=== PATIENT | female | born 1955 | race Caucasian/White ===

== ENCOUNTER → 2016-10-05 | Outpatient (CLI) | payer OTHER ==
[~2016-10-05] MED LIST: ADV250INH INH; ALBU17IN INH; ATOR1TAB19 PO; ATOR40TA PO; AUGM875T27 PO; BACITAB3 PO; BACT800T5 PO; BISO10TA6 PO; BISO5TAB5 PO; CINN500T PO; CLEO150C PO; CLOTR1CR TOP; EPI PEN; EPIP0.3I2 INJ; FISH100049 PO; FISHCAP PO; LEVA500T PO; LISI-542 PO; LISI10TA4 PO; MACR100C3 PO; MELA10CA PO; MELA3TAB PO; MELATONIN PO; METF500T PO; NAPR500T2 PO; NEXI40CA PO; NEXIUM PO; PENI250T57 PO; PENI50TA PO; POTATAB PO; SING10TA32 PO; SPIR25TA2 PO; SPIRPOW PO; TORS5TAB2 PO; VITA500T88 PO; ZEST1TAB5 PO; ZYRT1TAB PO; [UNRECOGNIZED DRUG - CODE] PO; [UNRECOGNIZED DRUG - OTHER] PO
--- NOTE | 2016-10-05 12:51 | REPMRS ---
Patient History The patient states she has not had a clinical breast exam in over a year. Patient is postmenopausal. No known family history of cancer. Digital Mammo Screening Bilat: October 05, 2016 - Exam #: [id number] Bilateral CC and MLO view(s) were taken. Technologist: Maia Hendricks, Technologist FINDINGS: There are scattered fibroglandular densities. There has been no change in the appearance of the mammogram from the prior studies. There is a mild amount of residual fibroglandular tissue which is fairly symmetric. There is no interval development of dominant mass, architectural distortion, or clustered microcalcification suggestive of malignancy. ASSESSMENT: BI-RADS/ACR category 1 mammogram. Negative. Recommendation Routine screening mammogram in 1 year (for women over age 40). This mammogram was interpreted with the aid of an FDA-approved computer-aided dectection system. Electronically Signed By: Aleksandr Urbano MD 10/05/16 1155
== END ==
LOC: M RAD 10:30
PROVIDERS: ATTEND Nurse Practitioner Family
DX: Z12.31 Encounter for screening mammogram for malignant neoplasm of breast (principal); Z78.0 Asymptomatic menopausal state

== ENCOUNTER → 2016-10-15 | Outpatient (CLI) | payer OTHER ==
[~2016-10-15] MED LIST changes: +CETI10TA PO; +E-Z-GAS II EFFERVESCENT PACKET (SODIUM BICARB./CITRIC ACID/SIMETHICONE) As Ordered ONE; +E-Z-HD 98% w/w 340GM SUSP BTL As Ordered ONE; +E-Z-PAQUE 96% w/w SUSP 176GM BTL As Ordered ONE; +FLUT1SPR2; +LIPI10TA PO; +MAGN500C PO; +OMEP20CA3 PO; +POTA99TA PO; +SITA50TAB PO; +VITA100037 PO
--- NOTE | 2016-10-15 14:54 | REP ---
ESOPHAGRAM AIR CONTRAST: The procedure was performed under the direct supervision of Dr. Urbano. The images were reviewed with Dr. Urbano. A single view PA chest x-ray is submitted as a manager audit film. There is no change compared to a previous chest x-ray performed on 08/19/2015. Liquid barium and gas producing granules were given in the erect position as well as liquid barium in the prone oblique positions in order to perform a double contrast esophagram examination. The oral and pharyngeal stages of deglutition are unremarkable. Esophageal transport demonstrates tertiary waves. There is no esophagitis, stricture, or mucosal ring. There is a small sliding type hiatal hernia present. Gastroesophageal reflux is not demonstrated on this examination. IMPRESSION: 1. Esophageal dysmotility. 2. There is a small sliding type hiatal hernia present. 1 minute and 17 seconds of fluoroscopic time was utilized for this procedure. Reviewed by ELADIA Hall 10/15/2016 05:05 PEdited and Signed by Aleksandr Urbano MD 10/15/2016 05:18 P
== END ==
LOC: M RAD 09:12
PROVIDERS: ATTEND Physician Assistant Medical
DX: K44.9 Diaphragmatic hernia without obstruction or gangrene (principal)

== ENCOUNTER → 2016-10-22 | Outpatient (CLI) | payer OTHER ==
[~2016-10-22] VITALS: Ht 160 cm; Wt 110.7 kg
[~2016-10-22] MED LIST changes: -E-Z-GAS II EFFERVESCENT PACKET (SODIUM BICARB./CITRIC ACID/SIMETHICONE) As Ordered ONE; -E-Z-HD 98% w/w 340GM SUSP BTL As Ordered ONE; -E-Z-PAQUE 96% w/w SUSP 176GM BTL As Ordered ONE; +LIDOCAINE 2% INJ 100 MG/5 ML SDV (FOR ANES.) As Ordered ONE; +NS 1,000 ML IV ONE; +PROPOFOL 200 MG/20 ML VIAL As Ordered ONE
[2016-10-22 12:26] VITALS: BP 125/58
== END | disposition home or self-care (01) ==
LOC: M OPP 09:05
PROVIDERS: ATTEND Internal Medicine Gastroenterology
DX: Z12.11 Encounter for screening for malignant neoplasm of colon (principal); K57.30 Diverticulosis of large intestine without perforation or abscess without bleeding; K64.8 Other hemorrhoids; Z86.010 Personal history of colon polyps; R93.3 Abnormal findings on diagnostic imaging of other parts of digestive tract; R13.10 Dysphagia, unspecified; K44.9 Diaphragmatic hernia without obstruction or gangrene; K22.4 Dyskinesia of esophagus; R12 Heartburn; I10 Essential (primary) hypertension; E78.5 Hyperlipidemia, unspecified; E11.9 Type 2 diabetes mellitus without complications; K57.92 Diverticulitis of intestine, part unspecified, without perforation or abscess without bleeding; M19.90 Unspecified osteoarthritis, unspecified site; G47.00 Insomnia, unspecified; J45.909 Unspecified asthma, uncomplicated; G47.30 Sleep apnea, unspecified; R06.83 Snoring; Z95.810 Presence of automatic (implantable) cardiac defibrillator; Z87.891 Personal history of nicotine dependence; Z88.8 Allergy status to other drugs, medicaments and biological substances; Z91.011 Allergy to milk products; Z91.030 Bee allergy status; Z79.899 Other long term (current) drug therapy; Z80.1 Family history of malignant neoplasm of trachea, bronchus and lung
CPT/HCPCS: 43249; G0105

== ENCOUNTER → 2017-05-29 | Outpatient (CLI) | payer OTHER ==
[2017-05-29 15:29] LABS: BACTERIA, URINE LARGE AMOUNT; HYALINE CAST, URINE NONE SEEN /lpf (0-1); RBC, URINE 0-1 /hpf (0-3); RENAL EPITHELIAL CELLS, URINE SMALL AMOUNT /hpf; SQUAMOUS EPITHELIAL CELL URINE SMALL AMOUNT /hpf (SMALL AMT)
[2017-05-29 15:30] LABS: MICROSCOPIC EXAM PERFORMED
== END ==
LOC: M SMT 10:25
DX: N39.0 Urinary tract infection, site not specified (principal)
CPT/HCPCS: 36415

== ENCOUNTER 2020-09-02 13:58 | Emergency (ER) | payer MEDICARE, OTHER ==
[~2020-09-02] VITALS: Ht 160 cm; Wt 104.1 kg
[~2020-09-02 13:58] MED LIST changes: -ATOR40TA PO; +ATOR40TA75 PO; -AUGM875T27 PO; +AUGM875T28 PO; +BACITAB PO; -BACITAB3 PO; +BISO10TA14 PO; -BISO10TA6 PO; +BISO5TAB14 PO; -BISO5TAB5 PO; +CLOT1CRE27 TOP; -CLOTR1CR TOP; +GARL400T8 PO; +LEVA1TAB2 PO; -LEVA500T PO; -LIDOCAINE 2% INJ 100 MG/5 ML SDV (FOR ANES.) As Ordered ONE; -LISI-542 PO; +LISI-898 PO; +LISI10TA22 PO; -LISI10TA4 PO; -MACR100C3 PO; +MACR100C43 PO; -MELA3TAB PO; +MELA3TAB70 PO; -METF500T PO; +METF500T13 PO; +NAPR-885 PO; -NAPR500T2 PO; -NS 1,000 ML IV ONE; +OMEP1CAP73 PO; -OMEP20CA3 PO; +PENI500T PO; -PENI50TA PO; -PROPOFOL 200 MG/20 ML VIAL As Ordered ONE; +SPIR-10 PO; -SPIR25TA2 PO; -VITA100037 PO; +VITA100067 PO; -[UNRECOGNIZED DRUG - CODE] PO
--- NOTE | 2020-09-02 14:35 | REP ---
INDICATION: CHEST PAIN. COMPARISON: 08/19/2015 TECHNIQUE: Portable FINDINGS: The technique utilized in obtaining the radiograph has magnified the cardiac silhouette and accentuated the interstitial markings. The superior mediastinal structures are midline. There is cardiomegaly accentuated by technique. 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 The diaphragmatic surfaces of the lungs are regular, and the costophrenic angles are clear. The pulmonary benton are clear. The imaged osseous structures are intact. IMPRESSION: There is no acute cardiopulmonary disease. <Electronically signed by Ulices Stern > 09/02/20 [id number]
[2020-09-02 14:50] LABS: BASO % 0.4 % (0.0-1.0); EOS # 0.2 10^3/uL (0.0-0.5); EOS % 2.2 % (0.0-3.0); HEMATOCRIT 39.5 % (36.0-47.0); HEMOGLOBIN 12.8 g/dl (12.0-15.5); LYMPH # 1.8 10^3/uL (1.5-5.0); LYMPH % 20.6 % (24.0-44.0); MEAN CORPUSCULAR HEMOGLOBIN 28.8 pg (27.0-33.0); MEAN CORPUSCULAR HGB CONC 32.4 g/dl (32.0-36.5); MONO # 0.7 10^3/uL (0.0-0.8); MONO % 7.8 % (2.0-8.0); NEUTROPHILS # 6.1 10^3/uL (1.5-8.5); NEUTROPHILS % 68.3 % (36.0-66.0); PLATELET COUNT, AUTOMATED 175 10^3/uL (150-450); RED BLOOD COUNT 4.44 10^6/uL (4.00-5.40); WHITE BLOOD COUNT 8.9 10^3/uL (4.0-10.0)
[2020-09-02 15:23] LABS: ALBUMIN 4.1 GM/DL (3.2-5.2); ALT/SGPT 43 U/L (12-78); BILIRUBIN,DIRECT 0.2 MG/DL (0.0-0.2); BILIRUBIN,TOTAL 0.5 MG/DL (0.2-1.0); BLOOD UREA NITROGEN 10 MG/DL (7-18); CALCIUM LEVEL 9.3 MG/DL (8.8-10.2); CARBON DIOXIDE LEVEL 26 MEQ/L (21-32); CHLORIDE LEVEL 105 MEQ/L (98-107); CK-MB VALUE MASS 1.2 NG/ML (<3.6); CPK CREATINE PHOSPHOKINASE 84 U/L (26-192); CREATININE FOR GFR 0.67 MG/DL (0.55-1.30); GLOMERULAR FILTRATION RATE > 60.0 (>45); GLUCOSE, FASTING 187 MG/DL (70-100); MB/CK RELATIVE INDEX 1.43 (< OR =4); POTASSIUM SERUM 3.7 MEQ/L (3.5-5.1); SODIUM LEVEL 140 MEQ/L (136-145); TOTAL PROTEIN 7.6 GM/DL (6.4-8.2); TROPONIN I < 0.02 NG/ML (< 0.10)
[2020-09-02 15:25] LABS: INR 1.14; PROTHROMBIN TIME 14.9 SECONDS (12.5-14.3)
[2020-09-02] MEDS ORDERED: FUROSEMIDE 40MG/4ML VIAL (J1940) IV ONE (15:25)
[2020-09-02 15:26] LABS: PARTIAL THROMBOPLASTIN TIME 29.4 SECONDS (24.2-38.5)
--- NOTE | 2020-09-02 15:38 | ECGEPIP ---
[facility] - ED Test Date: 2020-09-02 Pat Name: TRISTA CHAVARRIA Department: Room: - Gender: Female [employer]: LR : 1955 Requested By: WILLIE Tejeda Order Number: [id number] Reading MD: Vero Carcamo Measurements Intervals [place] Rate: 97 P: 43 LA: QRS: 40 QRSD: 118 T: 48 QT: 396 QTc: 502 Interpretive Statements Ventricular-paced rhythm increased rate 08/19/15 Electronically Signed on 09-02-2020 15:38:08 EDT by Vero Carcamo
--- NOTE | 2020-09-02 15:51 | REP ---
INDICATION: edema. COMPARISON: None. TECHNIQUE: Multiple ultrasonographic images of the deep venous structures of the bilateral thigh were obtained from the common femoral vein to the popliteal vein along with Doppler interrogation and color flow Doppler images. FINDINGS: There is no abnormal echogenic material seen within any of the visualized deep venous structures that would suggest acute thrombosis. Coaptation is unremarkable throughout. Doppler interrogation shows an expected response to respiratory variability and augmentation. The color flow images show what appears to be a normal vascular pattern throughout. IMPRESSION: There is no ultrasonographic evidence of deep venous thrombosis involving any of the visualized deep venous structures of the bilateral thigh, as described above. <Electronically signed by Ulices Stern > 09/02/20 [id number]
[2020-09-02] MEDS ORDERED: TORS5TAB2 PO ×2 (18:05→18:21)
[2020-09-02 18:21] VITALS: BP 177/84
== END 2020-09-02 19:04 | disposition home or self-care (01) ==
LOC: M ED 13:58
DX: R22.43 Localized swelling, mass and lump, lower limb, bilateral (principal); I11.0 Hypertensive heart disease with heart failure; I27.20 Pulmonary hypertension, unspecified; Z79.51 Long term (current) use of inhaled steroids; Z79.899 Other long term (current) drug therapy; Z87.891 Personal history of nicotine dependence
CPT/HCPCS: 36415; 71045; 80048; 80076; 82550; 82553; 83880; 84484; 85025; 85610; 85730; 93005; 93041; 93970; 96374; 99285; J1940

== ENCOUNTER → 2021-03-10 | Outpatient (CLI) | payer MEDICARE, OTHER ==
--- NOTE | 2021-03-10 12:54 | REPMRS ---
Patient History The patient states she has not had a clinical breast exam in over a year. No known family history of cancer. Patient states no breast complaints today. Patient has signed MRS History Sheet. Digital Woman Screen Mammo: March 10, 2021 - Exam #: [id number] Bilateral CC and MLO view(s) were taken. Technologist: Lynn Quinonez, Technologist Prior study comparison: October 05, 2016, bilateral digital mammo screening bilat, performed at [facility]. FINDINGS: There are scattered fibroglandular densities. Screening. Digital screening (2D) mammography was performed bilaterally in the CC and MLO projections. Additionally, breast tomosynthesis (3D mammography) was performed bilaterally in the CC and MLO projections. Todays exam was compared to the prior exam/exams. By history, the patient has no complaints of a palpable breast abnormality or other significant breast complaints. The breasts are unchanged in size and shape. There are no karo-soft tissue densities or spiculated masses. There is no internal architectural distortion.Once again, stable benign appearing calcifications are seen. There are no suspicious karo-calcific clusters. Skin thickening or nipple retraction is not present. IMPRESSION: BI-RADS Category 2- Benign Findings. There is no evidence of malignant alteration of the breasts. Followup examination recommended in one year. The Volpara volumetric breast density category is B, there are scattered areas of fibroglandular densities. This mammogram was read with the assistance of [employer] Neptune,an FDA approved computer aided detection system for mammography. The lifetime Tyrer-Cuzick score is 5.3 % Negative x-ray reports should not delay surgical consultation if a dominant or clinically suspicious mass is present. Not all breast cancers can be identified by mammography. Therefore, we recommend that you continue to perform regular breast self-examination and physical examination and then promptly contact your physician of any concerns or changes. Adenosis and dense breasts may obscure an underlying neoplasm. Assessment: BI-RADS/ACR category 2 mammogram. Benign Findings. Recommendation Routine screening mammogram of both breasts in 1 year. Electronically Signed By: Ulices Stern DO 03/10/21 [id number]
== END ==
LOC: M WHC 11:33
PROVIDERS: ATTEND Student in an Organized Health Care Education/Training Program
DX: Z12.31 Encounter for screening mammogram for malignant neoplasm of breast (principal)

== ENCOUNTER → 2021-08-31 | Outpatient (CLI) | payer MEDICARE, OTHER ==
[~2021-08-31] MED LIST changes: +ADV500INH; +CETI-24; +CINN500C15 PO; +CRAN400C PO; +FLON1SPR NARES; +JANU50TA25; -LISI-898 PO; +LISI5TAB11 PO; +OMEP40CA5; +POTASSIUM PO; +PROAAER10 INH; +RA M500C PO; +TRAV04OPD OP; +TUME1CAP PO; +VITA100093; +VITMTA PO
== END ==
LOC: M LABSMTC 09:40
PROVIDERS: ATTEND Anesthesiology
DX: Z01.812 Encounter for preprocedural laboratory examination (principal); Z20.822 Contact with and (suspected) exposure to COVID-19

== ENCOUNTER 2021-09-05 06:58 | Day surgery (SDC) | payer MEDICARE, OTHER ==
[~2021-09-05] VITALS: Ht 160 cm; Wt 101.5 kg
[2021-09-05] MEDS ORDERED: LIDOCAINE 2% 100MG/5ML SDV (FOR ANES.) As Ordered ONE (07:25)
[2021-09-05] MEDS ORDERED: propofoL 200 MG/20 ML VIAL As Ordered ONE (07:25)
[2021-09-05] MEDS ORDERED: NS 1,000 ML IV ONE (07:45)
[2021-09-05 09:24] VITALS: BP 151/67
== END 2021-09-05 09:36 | disposition home or self-care (01) ==
LOC: M OPP 06:58
PROVIDERS: ATTEND Surgery
DX: Z12.11 Encounter for screening for malignant neoplasm of colon (principal); Z86.010 Personal history of colon polyps; K57.30 Diverticulosis of large intestine without perforation or abscess without bleeding; E11.9 Type 2 diabetes mellitus without complications; J44.9 Chronic obstructive pulmonary disease, unspecified; E78.5 Hyperlipidemia, unspecified; I48.91 Unspecified atrial fibrillation; Z95.810 Presence of automatic (implantable) cardiac defibrillator; G47.33 Obstructive sleep apnea (adult) (pediatric); Z99.89 Dependence on other enabling machines and devices; Z87.891 Personal history of nicotine dependence; Z79.02 Long term (current) use of antithrombotics/antiplatelets; Z79.51 Long term (current) use of inhaled steroids; Z79.84 Long term (current) use of oral hypoglycemic drugs; Z79.899 Other long term (current) drug therapy; Z88.1 Allergy status to other antibiotic agents; Z91.030 Bee allergy status

== ENCOUNTER → 2023-08-08 | Outpatient (CLI) | payer MEDICARE, OTHER ==
[~2023-08-08] MED LIST changes: +MONT-5 PO; -SING10TA32 PO
== END ==
LOC: M PLAIMG 14:25
PROVIDERS: ATTEND Physician Assistant
DX: I50.42 Chronic combined systolic (congestive) and diastolic (congestive) heart failure (principal); I42.0 Dilated cardiomyopathy

== ENCOUNTER → 2024-03-12 | Outpatient (CLI) | payer MEDICARE, OTHER ==
[~2024-03-12] MED LIST changes: -CRAN400C PO; +CRANBERRY400 MG PO
== END ==
LOC: M RAD 12:41
PROVIDERS: ATTEND Internal Medicine Pulmonary Disease
DX: Z12.2 Encounter for screening for malignant neoplasm of respiratory organs (principal); Z87.891 Personal history of nicotine dependence

== ENCOUNTER → 2024-05-15 | Outpatient (REF) | payer MEDICARE, OTHER ==
[~2024-05-15] MED LIST changes: -ADV250INH INH; -ADV500INH; +ADVA1AER10; +ADVA1AER9 INH
[2024-05-15 18:03] LABS: BASO % 0.3 % (0.0-1.0); EOS # 0.1 10^3/uL (0.0-0.5); EOS % 0.7 % (0.0-3.0); HEMATOCRIT 40.4 % (36.0-47.0); HEMOGLOBIN 12.8 g/dl (12.0-15.5); LYMPH # 1.5 10^3/uL (1.5-5.0); LYMPH % 15.4 % (24.0-44.0); MEAN CORPUSCULAR HEMOGLOBIN 28.8 pg (27.0-33.0); MEAN CORPUSCULAR HGB CONC 31.7 g/dl (32.0-36.5); MONO # 0.6 10^3/uL (0.0-0.8); MONO % 6.3 % (2.0-8.0); NEUTROPHILS # 7.5 10^3/uL (1.5-8.5); NEUTROPHILS % 76.8 % (36.0-66.0); PLATELET COUNT, AUTOMATED 165 10^3/uL (150-450); RED BLOOD COUNT 4.44 10^6/uL (4.00-5.40); WHITE BLOOD COUNT 9.8 10^3/uL (4.0-10.0)
[2024-05-15 18:10] LABS: ALBUMIN 4.2 G/DL (3.2-5.2); ALKALINE PHOSPHATASE 58 U/L (35-104); ALT/SGPT 39 U/L (7.0-40); AST/SGOT 24 U/L (<34); BILIRUBIN,TOTAL 0.6 MG/DL (0.3-1.2); BLOOD UREA NITROGEN 13 MG/DL (9-23); CARBON DIOXIDE LEVEL 28 MMOL/L (20-31); CHLORIDE LEVEL 106 MMOL/L (98-107); CHOLESTEROL LEVEL 159 MG/DL (<200); CHOLESTEROL RISK RATIO 3.04 (<5); CREATININE FOR GFR 0.62 MG/DL (0.55-1.30); GLOMERULAR FILTRATION RATE > 60.0 (>39); GLUCOSE, FASTING 106 MG/DL (74-106); HDL CHOLESTEROL 52.2 MG/DL (>40); HEMOGLOBIN A1c 6.5 % (4.0-6.0); LDL CHOLESTEROL 83.2 MG/DL (<100); NON-HDL-C 106.8 MG/DL; POTASSIUM SERUM 4.5 MMOL/L (3.5-5.1); SODIUM LEVEL 140 MMOL/L (136-145); TOTAL PROTEIN 7.4 G/DL (5.7-8.2); TRIGLYCERIDES LEVEL 118 MG/DL (<150)
[2024-05-15 18:46] LABS: CREATININE, URINE 31.8 MG/DL; MALB URINE SIEMENS < 3.0 MG/L
== END ==
LOC: M LAB REF 16:38
PROVIDERS: ATTEND Nurse Practitioner Family
DX: E11.9 Type 2 diabetes mellitus without complications (principal); E66.3 Overweight; Z11.9 Encounter for screening for infectious and parasitic diseases, unspecified; R53.83 Other fatigue; Z11.3 Encounter for screening for infections with a predominantly sexual mode of transmission; Z72.89 Other problems related to lifestyle

== ENCOUNTER → 2024-11-18 | Outpatient (CLI) | payer MEDICARE, OTHER ==
[2024-11-18 12:30] LABS: PLATELET COUNT, AUTOMATED 165 10^3/uL (150-450)
[2024-11-18 12:57] LABS: CALCIUM LEVEL 8.9 MG/DL (8.3-10.6); CARBON DIOXIDE LEVEL 24 MMOL/L (20-31); CHLORIDE LEVEL 103 MMOL/L (98-107); CREATININE FOR GFR 0.71 MG/DL (0.55-1.30); GLOMERULAR FILTRATION RATE > 90.0 (>39); POTASSIUM SERUM 4.1 MMOL/L (3.5-5.1); SODIUM LEVEL 142 MMOL/L (136-145)
== END ==
LOC: M LAB 10:31
PROVIDERS: ATTEND Physician Assistant
DX: R06.02 Shortness of breath (principal); I50.42 Chronic combined systolic (congestive) and diastolic (congestive) heart failure

== ENCOUNTER → 2025-04-13 | Outpatient (REF) | payer MEDICARE, OTHER ==
[2025-04-13 17:34] LABS: APPEARANCE, URINE HAZY (CLEAR); BACTERIA, URINE AUTO 3+ (NEGATIVE); BILIRUBIN, URINE AUTO NEGATIVE (NEGATIVE); BLOOD, URINE BLOOD 1+ (NEGATIVE); GLUCOSE, URINE (UA) AUTO NEGATIVE (NEGATIVE); KETONE, URINE AUTO NEGATIVE (NEGATIVE); LEUKOCYTE ESTERASE, URINE AUTO 2+ (NEGATIVE); MUCUS, URINE SMALL (NEGATIVE); NITRITE, URINE AUTO NEGATIVE (NEGATIVE); PROTEIN, URINE AUTO NEGATIVE (NEGATIVE); RBC, URINE AUTO 1 /HPF (0-3); SPECIFIC GRAVITY URINE AUTO 1.003 (1.002-1.035); SQUAMOUS EPITHELIAL CELL UR AU 4 /HPF (0-6); UROBILINOGEN, URINE AUTO 0.2 mg/dL (0.0-2.0); WBC, URINE AUTO 5 /HPF (0-3)
== END ==
LOC: M LAB REF 16:27
PROVIDERS: ATTEND Nurse Practitioner Family
DX: R10.A3 Flank pain, bilateral (principal)